=== PATIENT | male | born 1985 | race Caucasian/White ===

== ENCOUNTER 2021-03-23 14:00 | Emergency (ER) | payer OTHER, SELFPAY ==
[2021-03-23 14:17] VITALS: BP 135/82; PULSE 74; RESP 18; TEMP 36.6; O2SAT 100
--- NOTE | 2021-03-23 14:28 | ED.EYEPROB ---
HPI - Eye Problem General Chief complaint: Eye Problems Stated complaint: bilateral eye redness Time Seen by Provider: 03/23/21 14:29 Source: patient, RN notes reviewed and old records reviewed Mode of arrival: ambulatory Limitations: no limitations History of Present Illness HPI Narrative: 36 year old male presents to [facility] care with complaints of sinus congestion since the of this month with sinus pressure and cough. Patient reports also that he awoke this morning with redness to bilateral eyes with yellowish crusty drainage with no sharp pain to his eyes, some blurry vision and increased watering of eyes.Visual acuity right 20/25. Left 20/20 without correction.Patient states that he has history of sinus problems in the past and sinus infections. Patient states that he had COVID in January, has had COVID shots but no Booster. Patient states that his throat feels scratchy but denies any acute throat pain.No fevers, chills or sweats or any body aches.Patient reports that he took some Mucinex over the weekend. MD chief complaint: eye redness and other (crusty drainage from eyes, sinus congestion since ) Onset (ago): hour(s) (eye redness since this morning) Onset description: awoke with symptoms Location: both eyes Eye Symptoms: redness, blurry vision and other (pressure) If Pain, Quality: other (pressure) Associated symptoms: rhinorrhea Treatments Prior to Arrival: other (mucinex over the weekend) Related Data Allergies Allergy/AdvReac Type Severity Reaction Status Date / Time No Known Allergies Allergy Verified 03/23/21 14:23 Review of Systems Review of Systems: CONSTITUTIONAL: Denies fever, chills, or sweats. EYES: Denies visual changes, redness, or discharge. ENT: Denies rhinorrhea, congestion, sore throat, or otalgia. CARDIOVASCULAR: Denies chest pain, palpitations, or edema. RESPIRATORY: Denies cough or dyspnea. GASTROINTESTINAL: Denies abdominal pain, nausea, vomiting, or diarrhea. GENITOURINARY: Denies dysuria or hematuria. SKIN: Denies rash or itching. MUSCULOSKELETAL: Denies back pain, joint pain, or myalgia. NEUROLOGIC: Denies headache, numbness, or weakness. PSYCHIATRIC: Denies anxiety or depression. All systems reviewed & are unremarkable except as noted in HPI and below [facility] Past Medical History Medical History (Updated 03/23/21 @ 15:33 by Patricia Medina NP) Seasonal allergies Surgical History Surgical History (Updated 03/23/21 @ 15:47 by Patricia Medina NP) S/P medial meniscal repair Family History Family History (Updated 03/23/21 @ 15:42 by Patricia Medina NP) Other No significant family history Social History Social History (Updated 03/23/21 @ 15:42 by Patricia Medina NP) Smoking status: Never smoker Alcohol intake: current Alcohol use details: rare social Substance use: never Living arrangements: with family Gender identity (if verbalized by the patient): Male Comments At time of signature, agree with nursing past medical, surgical, social and family history. There is no relevant family history pertinent to the presenting complaint Exam Narrative: GENERAL: Well-appearing, well-nourished, and in no acute distress. HEAD: Normocephalic, atraumatic. EYES: PERRLA and EOMI. sclera red bilateral with increase in watering from eyes states some crusting from eyes this morning states pressure to eyes but no sharp pain, some blurring of vision. ENT: Nares red with clear rhinorrhea No epistaxis. Mucous membranes moist. some sinus pressure, no headache pain, Tm's normal with good light reflex, throat mild redness with no lesions or exudates, no tonsil enlargement post nasal drainage present. NECK: Supple. no lymphadenopathy CHEST: Clear to auscultation. No respiratory distress.SAO2 100% on room air HEART: Regular rate and rhythm. No murmur heard. Normal peripheral pulses. ABDOMEN: Soft, nontender, nondistended, normal active bowel sounds. EXTREMITIES: Normal range of
== END 2021-03-23 14:55 | disposition home or self-care (01) ==
PROVIDERS: Emergency Provider Registered Nurse
DX: J06.9 Acute upper respiratory infection, unspecified (principal); H10.33 Unspecified acute conjunctivitis, bilateral; Z86.16 Personal history of COVID-19
CPT/HCPCS: 99213; G0463